=== PATIENT | male | born 1950 | race Caucasian/White ===

== ENCOUNTER 2017-08-14 01:31 | Emergency (ER) | payer MEDICARE ==
[~2017-08-14 01:31] MED LIST: LANS15CA60 PO
[2017-08-14 01:42] VITALS: BP 184/124
== END 2017-08-14 01:57 | disposition home or self-care (01) ==
LOC: ED 01:38
DX: F10.20 Alcohol dependence, uncomplicated (principal); I10 Essential (primary) hypertension
CPT/HCPCS: 99283